=== PATIENT | male | born 1975 | race Caucasian/White ===

== ENCOUNTER 2016-09-17 10:09 | Emergency (ER) | payer MEDICARE, MEDICAID ==
[2016-09-17 10:43] VITALS: TEMP 100.2; BMI 27.3
[2016-09-17 10:53] LABS: AUTOMATED BASOPHIL 0.6 % (0-2); AUTOMATED EOSINOPHIL 0.3 % (0-5); AUTOMATED LYMPH 14.6 % (17-44); AUTOMATED MONOCYTE 7.7 % (3-10); AUTOMATED NEUTROPHIL 76.8 % (45-76)
[2016-09-17 11:13] LABS: LEUKOCYTES/URINE NEG (NEGATIVE); NITRITE/URINE NEG (NEGATIVE); URINE OCCULT BLOOD 3+ (NEG/TRACE)
[2016-09-17 11:16] LABS: BLOOD UREA NITROGEN 11 MG/DL (9-20); CALCIUM 9.1 MG/DL (8.4-10.2); CALCULATED OSMOLALITY 263 MOs/Kg (270-290); CHLORIDE 97 mEq/L (98-107); GLUCOSE 99 MG/DL (70-99); SODIUM LEVEL 137 mEq/L (137-146); TOTAL PROTEIN 6.9 G/DL (6.3-8.2)
[2016-09-17] MEDS ORDERED: ONDANSETRON HCL 4 MG/2 ML VIAL IV ONE (13:06)
[2016-09-17] MEDS ORDERED: NS 1,000 ML IV ONE (13:06)
[2016-09-17] MEDS ORDERED: SODIUM CHLORIDE 0.9% 10 ML FLUSH FLUSH PRN (13:06)
[2016-09-17] MEDS ORDERED: MORPHINE 4 MG/ML INJECTION IV ONE (13:06)
--- NOTE | 2016-09-17 13:12 | EDPRACDOC ---
- General Information Information Source: Family Mode Of Arrival: Car - History of Present Illness Onset: 10 days Pain Location: Reports: RUQ Pain Context: Reports: Spontaneous Pain Severity: Moderate Pain Quality: Reports: Aching Pain Radiation: Reports: Back Adult Abdominal History: Reports: Abdominal Surgery Modifying Factors: improves with: Nothing Associated Signs & Symptoms: Reports: Diarrhea, Fever Oral Intake: Decreased Urinary Output: Normal <Neisha Sullivan - Last Filed: 09/17/16 16:20> <Lulu Tapia - Last Filed: 09/17/16 17:30> - General Information Chief Complaint: Abdominal Pain Stated Complaint: LT SIDE ABD PAIN/FEVER Time Seen by Provider: 09/17/16 13:06 Home Medications: Home Medications No Home Medications 09/17/16 Allergies/Adverse Reactions: Allergies Allergy/AdvReac Type Severity Reaction Status Date / Time No Known Allergies Allergy Verified 09/17/16 10:43 - History of Present Illness HPI: Pt c/o RUQ pain radiating to back x 10 days. Care takers states today developed fever, diarrhea. Denies cough, vomiting, changes in bowel or bladder, rash. Pt is deaf (Neisha Sullivan) ED Past Medical History - History Reviewed Yes Nurses notes reviewed and agree except as marked - Patient Medical History Psychological History: Reports: Anxiety, Schizophrenia. Denies: Substance Use Disorder Systemic History: Denies: Cancer Additional Past Medical History: PT IS DEAF Surgical History: Reports: Appendectomy, Other (Cochlear implants and repair of xiphoid process in childhood.) - Family Medical History Reports: Hypertension (MOTHER), Diabetes (MOTHER), Stroke (MATERNAL GRANDFATHER) , Cardiac Disorders (MOTHER). Denies: Cancer - Social Medical History Smoking Status: Never smoker Social History: Denies: Amphetamine Use, Barbiturate Use, Benzodiazipine Use, Cocaine Use, Heroin Use, Marijuana Use, Methadone Use, MDMA (Ecstasy) Use, Substance Use Disorder <Neisha Sullivan - Last Filed: 09/17/16 16:20> EDM Review of Systems - Review of Systems Constitutional: Fever Ears: No Symptoms Reported. negative: Pain, Hearing Loss, Drainage, Ear Pulling Throat: No Symptoms Reported. negative: Pain, Swelling Nose: No Symptoms Reported. negative: Congestion, Bleeding, Discharge, Injection, Swelling, Deformity, Ecchymosis, Tender, Abrasion, Laceration Mouth: No Symptoms Reported. negative: Pain, Drooling Respiratory: No Symptoms Reported. negative: Cough, Brassy Cough, Barky Cough, Shortness of Breath, Wheezing, Hemoptysis Cardiovascular: No Symptoms Reported. negative: Chest Pain, Palpitations, Syncope, Edema, Orthopnea, PND, Skin Mottling, Cyanosis Gastrointestinal: Diarrhea, Pain Genitourinary: No Symptoms Reported. negative: Dysuria, Hematuria, Frequency, Discharge, Bleeding, Testicular Pain, Neurological: No Symptoms Reported. negative: Headache, Dizziness, Seizure, Numbness, Weakness, Speech Difficulty, Gait Difficulty Musculoskeletal: Back Integumentary: No Symptoms Reported. negative: Itching, Rash, Bruising, Wound Allergic/Immunologic: No Symptoms Reported. negative: Hives, Itching Hematologic: No Symptoms Reported. negative: Lymphadenopathy, Easy Bruising, Easy Bleeding Psychiatric: No Symptoms Reported. negative: Anxiety, Depression, Hallucinations, Insomnia, Suicidal <Neisha Sullivan - Last Filed: 09/17/16 16:20> - Physical Exam Constitutional: Alert Oriented to: Time, Person, Place - HEENT Head: Normal ( normocephalic) Eye Exam: Normal (PERRL, EOMI, Sclera white) Oropharynx: Normal (Pharynx:Moist without exudate,Gums-no swelling) Tympanic Membrane: Normal ENT EAC: Normal Nose: No Symptoms Reported (septum midline) Neck: Normal (FROM, trachea at midline) - Respiratory/Cardiovascular Respiratory: Normal - CTA (BBS clear to auscultation without adventitious sounds ) Cardiovascular: Tachycardia - GI Auscultation: Normal (NABS) Palpation: Normal (Soft,No rebound or guarding, non distended) Tenderness: Mild, RUQ [place]ney's Sign: Positive - Musculoskeletal Back: Normal (Non-Tender) Extremities: Normal (Normal tone, Pulses 2+ No cyanosis or edema, FROM) - Integumentary Skin: Normal, Warm, Dry Lymphatics: Normal (no adenopathy) - Neurologic Memory Impaired: Normal Motor Function: Normal (Normal tone, Pulses 2+ No cyanosis or edema, FROM) <Neisha Sullivan - Last Filed: 09/17/16 16:20> - Differential Diagnosis Cholecystitis, Cholelithiasis, Colic, Gastroenteritis, PUD, UTI - Results 09/17/16 10:46 09/17/16 10:46 - Diagnostic Imaging Abdomen Image interpreted by: Radiologist <Neisha Sullivan - Last Filed: 09/17/16 16:20> - Results 09/17/16 10:46 09/17/16 10:46 <Lulu Tapia - Last Filed: 09/17/16 17:30> - Results WBC 12.7 xk/uL (3.8-10.8) H 09/17/16 10:46 RBC 4.66 xM/uL (4.70-6.10) L 09/17/16 10:46 Hgb 12.9 g/dL (14.0-18.0) L 09/17/16 10:46 Hct 39.1 % (42-52) L 09/17/16 10:46 MCV 84 fL (80-94) 09/17/16 10:46 MCH 27.7 pg (27-32) 09/17/16 10:46 MCHC 32.9 g/dl (33-36) L 09/17/16 10:46 RDW 13.4 % (11.5-14.5) 09/17/16 10:46 Plt Count 444 xk/uL (130-400) H 09/17/16 10:46 MPV 7.0 fL (7.4-10.4) L 09/17/16 10:46 Neut % (Auto) 76.8 % (45-76) H 09/17/16 10:46 Lymph % (Auto) 14.6 % (17-44) L 09/17/16 10:46 [place]dwell % (Auto) 7.7 % (3-10) 09/17/16 10:46 Eos % (Auto) 0.3 % (0-5) 09/17/16 10:46 Baso % (Auto) 0.6 % (0-2) 09/17/16 10:46 Absolute Neuts (auto) 9.65 xk/uL (1.7-8.2) H 09/17/16 10:46 Absolute Lymphs (auto) 1.78 xk/uL (0.65-4.75) 09/17/16 10:46 Sodium 137 mEq/L (137-146) 09/17/16 10:46 Potassium 4.2 mEq/L (3.5-5.1) 09/17/16 10:46 Chloride 97 mEq/L (98-107) L 09/17/16 10:46 Carbon Dioxide 28 mMOL/L (22-33) 09/17/16 10:46 Anion Gap 16 mEq/L (8-16) 09/17/16 10:46 BUN 11 MG/DL (9-20) 09/17/16 10:46 Creatinine 0.90 MG/DL (0.66-1.25) 09/17/16 10:46 Estimated GFR (MDRD) > 60 mL/min (>=60) 09/17/16 10:46 Glucose 99 MG/DL (70-99) 09/17/16 10:46 Calculated Osmolality 263 MOs/Kg (270-290) L 09/17/16 10:46 Calcium 9.1 MG/DL (8.4-10.2) 09/17/16 10:46 Corrected Calcium 10.0 MG/DL (8.4-10.2) 09/17/16 10:46 Total Bilirubin 0.8 MG/DL (0.2-1.3) 09/17/16 10:46 AST 33 IU/L (17-59) 09/17/16 10:46 ALT 32 IU/L (21-72) 09/17/16 10:46 Alkaline Phosphatase 110 IU/L (38-126) 09/17/16 10:46 Total Protein 6.9 G/DL (6.3-8.2) 09/17/16 10:46 Albumin 3.1 G/DL (3.5-5.0) L 09/17/16 10:46 Urine Color Yellow 09/17/16 10:50 Urine Clarity Clear 09/17/16 10:50 Urine pH 6.0 (5.0-8.0) 09/17/16 10:50 Ur Specific [place] 1.010 (1.003-1.035) 09/17/16 10:50 Urine Protein 1+ (NEG/TRACE) H 09/17/16 10:50 Urine Glucose (UA) Neg (NEGATIVE) 09/17/16 10:50 Urine Ketones 1+ (NEGATIVE) H 09/17/16 10:50 Urine Occult Blood 3+ (NEG/TRACE) H 09/17/16 10:50 Urine Nitrite Neg (NEGATIVE) 09/17/16 10:50 Urine Bilirubin Neg (NEGATIVE) 09/17/16 10:50 Urine Urobilinogen <2.0 MG/DL (0-1) 09/17/16 10:50 Ur Leukocyte Esterase Neg (NEGATIVE) 09/17/16 10:50 Urine RBC 10-20 (0-2) H 09/17/16 10:50 Urine WBC 2-5 (0-2) H 09/17/16 10:50 Urine Bacteria Few (NEG/FEW) 09/17/16 10:50 Urine Mucus Mod (NEG/OCC) H 09/17/16 10:50 Lab Results 09/17/16 09/17/16 09/17/16 10:50 10:46 10:46 WBC 12.7 H RBC 4.66 L Hgb 12.9 L Hct 39.1 L MCV 84 MCH 27.7 MCHC 32.9 L RDW 13.4 Plt Count 444 H MPV 7.0 L Neut % (Auto) 76.8 H Lymph % (Auto) 14.6 L [place] % (Auto) 7.7 Eos % (Auto) 0.3 Baso % (Auto) 0.6 Absolute Neuts (auto) 9.65 H Absolute Lymphs (auto) 1.78 Sodium 137 Potassium 4.2 Chloride 97 L Carbon Dioxide 28 Anion Gap 16 BUN 11 Creatinine 0.90 Estimated GFR (MDRD) > 60 Glucose 99 Calculated Osmolality 263 L Calcium 9.1 Corrected Calcium 10.0 Total Bilirubin 0.8 AST 33 ALT 32 Alkaline Phosphatase 110 Total Protein 6.9 Albumin 3.1 L Urine Color Yellow Urine Clarity Clear Urine pH 6.0 Ur Specific [place] 1.010 Urine Protein 1+ H Urine Glucose (UA) Neg Urine Ketones 1+ H Urine Occult Blood 3+ H Urine Nitrite Neg Urine Bilirubin Neg Urine Urobilinogen <2.0 Ur Leukocyte Esterase Neg Urine RBC 10-20 H Urine WBC 2-5 H Urine Bacteria Few Urine Mucus Mod H (Neisha Sullivan) (Lulu Tapia) - Diagnostic Imaging Abdomen 09/17/16 15:02 US: IMPRESSION: 1. Acute, large right lobe complex liver lesion. Although nonspecific, considering this is new from March and there was a small perihepatic abscess at that time, large Liver Abscess is a leading consideration. Recommend repeat CT Abdomen and Pelvis with oral and IV contrast. 2. Negative gallbladder. No evidence of biliary obstruction. No abdominal free fluid identified. 09/17/16 16:20 CT: IMPRESSION: 13 mm cystic lesion with peripheral rim enhancement in the posterior right hepatic lobe, suspicious for large abscess. Percutaneous needle aspiration and drainage should be considered. (Neisha Sullivan) - Additional Information PT D/W DR. GREER. HE FEELS THIS LIVER ABSCESS IS TOO COMPLICATED FOR RH AND REQUESTS TRANSFER TO A TERTIARY CARE FACILITY. PT D/W DR. FAUSTIN (GEN SURGERY AT [facility]). SHE ACCEPTED PT FOR TRANSFER. No changes in clinical status or new information from previous documentation. Vital Signs: Temp:100.2 F HR: 112 BP: 103/67 RR: 18 Pox: 95%. Continue with current plan. PT STABLE FOR [place] (Lulu Tapia) - Departure Disposition: Trans. to Other Hospital Education/Counseling Given To: Patient, Family Member Education/Counseling Given Regarding: Diagnosis, Treatment Decision to Transfer Time: 16:20 <Neisha Sullivan - Last Filed: 09/17/16 16:20> - Departure Yes I personally saw and evaluated the patient. <Lulu Tapia - Last Filed: 09/17/16 17:30> - Departure Condition: Stable Final Diagnosis: Liver abscess Referrals: None,No Provider [Primary Care Provider] - One Week
[2016-09-17] MEDS ORDERED: Pharmacy Review for Metformin - IV Contrast Given SCH ×3 (14:00→15:00)
--- NOTE | 2016-09-17 14:57 | DIRPT ---
CLINICAL DATA: 40-year-old male with right abdominal pain for 1 week with fever. Initial encounter. Personal history of appendectomy complicated by small abdominal abscess along the inferior liver margin in March. EXAM: US ABDOMEN LIMITED - RIGHT UPPER QUADRANT COMPARISON: CT Abdomen and Pelvis 03/16/2016 and earlier FINDINGS: Gallbladder: No gallstones or wall thickening visualized. No sonographic [place] sign noted by personal injury law specialist. Common bile duct: Diameter: 4 mm, normal Liver: Abnormal appearance of the right hepatic lobe with a large complex appearing area bordering Morison pouch measuring at least 11 x 13 cm (image 8). This appears to extend to the liver capsule, but there is no perihepatic free fluid identified. No hypervascularity (image 31). The visible liver dome and left hepatic lobe appear within normal limits. Other findings: Visible right kidney within normal limits. IMPRESSION: 1. Acute, large right lobe complex liver lesion. Although nonspecific, considering this is new from March and there was a small perihepatic abscess at that time, large Liver Abscess is a leading consideration. Recommend repeat CT Abdomen and Pelvis with oral and IV contrast. 2. Negative gallbladder. No evidence of biliary obstruction. No abdominal free fluid identified. Electronically Signed By: Ravin Hooper M.D. On: 09/17/2016 14:55
[2016-09-17] MEDS ORDERED: DIATRIZOATE MEGLMINE/SODIUM 30 ML BOTTLE PO ONE (15:00)
[2016-09-17 15:57] VITALS: PULSE 112
--- NOTE | 2016-09-17 16:09 | DIRPT ---
CLINICAL DATA: Right-sided abdominal pain, fever, diarrhea, and cough beginning today. EXAM: CT ABDOMEN AND PELVIS WITH CONTRAST TECHNIQUE: Multidetector CT imaging of the abdomen and pelvis was performed using the standard protocol following bolus administration of intravenous contrast. CONTRAST: 100 mL Isovue 370 COMPARISON: Abdomen ultrasound on 09/17/2016 FINDINGS: Lower chest: No acute findings. Hepatobiliary: New complex cystic lesion with thick irregular enhancing rim is seen in the inferior right hepatic lobe which measures 13.0 x 9.2 cm, suspicious for large abscess. No other liver lesions identified. Gallbladder is unremarkable. Pancreas: No mass, inflammatory changes, or other significant abnormality. Spleen: Within normal limits in size and appearance. Adrenals/Urinary Tract: No masses identified. No evidence of hydronephrosis. Stomach/Bowel: No evidence of obstruction, inflammatory process, or abnormal fluid collections. Vascular/Lymphatic: No pathologically enlarged lymph nodes. No evidence of abdominal aortic aneurysm. Reproductive: No mass or other significant abnormality. Other: None. Musculoskeletal: No suspicious bone lesions identified. IMPRESSION: 13 mm cystic lesion with peripheral rim enhancement in the posterior right hepatic lobe, suspicious for large abscess. Percutaneous needle aspiration and drainage should be considered. Electronically Signed By: Danyel Fenton M.D. On: 09/17/2016 16:06
[2016-09-17] MEDS ORDERED: CEFTRIAXONE 1 GM in D5W 100 ML IV ONE (16:15)
[2016-09-17] MEDS ORDERED: Metronidazole 500 mg/100 ml 500 MG/100 ML RTU IV ONE (16:15)
[2016-09-17 17:10] VITALS: BP 103/67
== END 2016-09-17 17:33 | disposition short-term general hospital (02) ==
LOC: ED 10:09
DX: K75.0 Abscess of liver (principal)
CPT/HCPCS: 36415; 74177; 76705; 80053; 81001; 85025; 96361; 96365; 96366; 96375; 99284; A9698; J0696; J2270; J2405; J3490; J7060